=== PATIENT | female | born 1970 | race Caucasian/White ===

== ENCOUNTER 2016-06-03 20:45 | Emergency (ER) | payer OTHER ==
[~2016-06-03] VITALS: Ht 160 cm; Wt 90.0 kg
[~2016-06-03 20:45] MED LIST: HYDR-906 PO; IBUP400T22 PO; KENC25 TOP; MED4DP PO
[2016-06-03 20:55] VITALS: Ht 160 cm; Wt 90.0 kg
[2016-06-03] MEDS ORDERED: ALBUTEROL 0.5% (NEB) 2.5 MG/0.5 ML AMP HHN STA (21:43)
[2016-06-03] MEDS ORDERED: PRED20TA PO (21:49)
[2016-06-03] MEDS ORDERED: ALBU18HF INHALATION (21:49)
[2016-06-03] MEDS ORDERED: AMO500 PO (21:49)
[2016-06-03] MEDS ORDERED: IBUP-1542 PO (21:49)
--- NOTE | 2016-06-03 21:50 | ERD ---
ER Documentation Chief Complaint Date/Time DATE: 06/03/16 TIME: 21:49 Chief Complaint cough/runny nose/body aches x 3 days HPI This 45 female presents with cough, body aches and congestion. She has chest pain, vomiting, abdominal pain. ROS All systems reviewed and are negative except as per history of present illness. Medications Home Meds Active Scripts Ibuprofen* (Motrin*) 600 Mg Tab, 600 MG PO Q6, #20 TAB Prov:ANASTASIA ROMERO MD 06/03/16 Amoxicillin* (Amoxicillin*) 500 Mg Cap, 500 MG PO TID for 10 Days, CAP Prov:ANASTASIA ROMERO MD 06/03/16 Albuterol Sulfate* (Ventolin HFA*) 18 Gm Hfa.aer.ad, 2 PUFF INHALATION Q4H, #1 INHALER Prov:ANASTASIA ROMERO MD 06/03/16 Prednisone* (Prednisone*) 20 Mg Tab, 40 MG PO DAILY for 4 Days, TAB Start June 04, 2016 Prov:ANASTASIA ROMERO MD 06/03/16 Hydrocodone/Acetaminophen ([place] 5-325 Tablet) 1 Each Tablet, 1 EACH PO BID, #6 TAB Prov:ARCENIO HAYWOOD PA-C 01/19/16 Methylprednisolone* (Medrol* DOSE PACK) 4 Mg/Dose-Pack Tab.ds.pk, 4 MG PO . DIRECTED, #1 PACKET Prov:ARCENIO HAYWOOD PA-C 01/19/16 Triamcinolone Acetonide* (Kenalog*) 0.25%-15GM Cr, 1 APPLIC TOP BID for 7 Days, EA Prov:BENNETT DOSS DO 09/29/15 Reported Medications Ibuprofen* (Ibuprofen*) 400 Mg Tablet, 400 MG PO TID 04/09/12 Allergies Allergies: Coded Allergies: azithromycin (Verified Allergy, Mild, HIVES, 06/03/16) PMhx/Soc History of Surgery: Yes (D7C, BACK SX GALLBLADDER) Anesthesia Reaction: No Hx Neurological Disorder: No Hx Respiratory Disorders: No Hx Cardiac Disorders: No Hx Psychiatric Problems: No Hx Miscellaneous Medical Probl: Yes (CERVICAL, LUMBAR DJD, OA) Hx Alcohol Use: No Hx Substance Use: No Hx Tobacco Use: No (quit 5 years ago) Physical Exam Vitals Vital Signs Date Time Temp Pulse Resp B/P Pulse Ox O2 Delivery O2 Flow Rate FiO2 06/03/16 20:55 99.1 108 20 129/72 98 Physical Exam Const: [] Alert, [id number] per Head: Atraumatic Eyes: Normal Conjunctiva ENT: Normal External Ears, Nose and Mouth. Left TM is red and bulging. Neck: Full range of motion..~ No meningismus. Resp: Clear to auscultation bilaterally. Mild wheezing without rales or retractions. Cardio: Regular rate and rhythm, no murmurs Abd: Soft, non tender, non distended. Normal bowel sounds Skin: No petechiae or rashes Back: No midline or flank tenderness Ext: No cyanosis, or edema Neur: Awake and alert Psych: Normal Mood and Affect Results 24 hrs Current Medications Medications (Trade) Dose Ordered Sig/Gunnar Route PRN Reason Start Time Stop Time Status Last Admin Dose Admin Prednisone (Prednisone) 40 mg ONCE ONCE PO 06/03/16 22:00 06/03/16 22:01 Albuterol (Proventil 0.5% (Neb)) 2.5 mg ONCE STAT HHN 06/03/16 21:43 06/03/16 21:45 DC Procedures/MDM Patient was given albuterol treatment and prednisone 40 mg by mouth. Patient signs and symptoms of otitis media and bronchitis with wheezing without evidence of hypoxemia or respiratory distress.. She will be treated with amoxicillin, short course of prednisone Ventolin and ibuprofen. The patient was stable with no new complaints during the ER course. Clinically, there is no current evidence to suggest meningitis, sepsis, acute abdomen, pneumonia, acute coronary syndrome, pulmonary embolism, or any other emergent condition appearing to require further evaluation or hospitalization. The patient should certainly return for any new or worsening symptoms per the aftercare instructions. They should otherwise follow-up with her primary care doctor for reevaluation this week. Departure Diagnosis: Primary Impression: Otitis media Otitis media type: suppurative Laterality: left Chronicity: acute Recurrence: not specified as recurrent Spontaneous tympanic membrane rupture: without spontaneous rupture Qualified Code: H66.002 - Acute suppurative otitis media of left ear without spontaneous rupture of tympanic membrane, recurrence not specified Additional Impression: URI, acute Condition: Stable Patient Instructions: Bronchitis With Wheezing (Adult), Otitis Media, Abx Tx ( Adult) Additional Instructions: Recheck for new or worsening symptoms or with primary care doctor. ANASTASIA ROMERO MD Jun 03, 2016 21:50
[2016-06-03] MEDS ORDERED: predniSONE 20 MG TAB PO ONE (22:00)
[2016-06-03 22:53] VITALS: BP 128/79; PULSE 95; RESP 20; TEMP 98.2
== END 2016-06-03 22:53 | disposition home or self-care (01) ==
LOC: FTE 20:45
DX: H66.002 Acute suppurative otitis media without spontaneous rupture of ear drum, left ear (principal); J06.9 Acute upper respiratory infection, unspecified; Z87.891 Personal history of nicotine dependence
CPT/HCPCS: 94664; J7512; Z7502; Z7610

== ENCOUNTER 2016-06-11 20:47 | Emergency (ER) | payer SELFPAY ==
[~2016-06-11] VITALS: Ht 162.6 cm; Wt 88.5 kg
[~2016-06-11 20:47] MED LIST changes: +ALBU18HF INHALATION; +AMO500 PO; +IBUP-1542 PO; +PRED20TA PO
[2016-06-11 21:17] VITALS: Ht 162.6 cm; Wt 88.5 kg
[2016-06-12] MEDS ORDERED: ADV25050 INHALATION (14:20)
[2016-06-12] MEDS ORDERED: DOXY100T20 PO (14:20)
[2016-06-12] MEDS ORDERED: IPRA4AER INHALATION (14:20)
[2016-06-12] MEDS ORDERED: BENZ100C70 PO (14:20)
== END 2016-06-12 00:48 | disposition left against medical advice (07) ==
LOC: FTE 20:47
DX: Z53.21 Procedure and treatment not carried out due to patient leaving prior to being seen by health care provider (principal)

== ENCOUNTER 2016-06-12 07:14 | Emergency (ER) | payer OTHER ==
[~2016-06-12] VITALS: Wt 88.0 kg
[2016-06-12] MEDS ORDERED: METHYLPREDNISOLONE 125 MG INJ IM STA (08:11)
[2016-06-12] MEDS ORDERED: LEVALBUTEROL (NEB) 1.25 MG/0.5 ML AMP INH STA (08:11)
[2016-06-12] MEDS ORDERED: IPRATROPIUM (NEB) 0.5 MG/2.5 ML AMP INH STA (08:11)
[2016-06-12] MEDS ORDERED: ONDANSETRON (ODT) 4 MG TAB ODT STA (08:43)
--- NOTE | 2016-06-12 08:44 | RADRPT ---
PROCEDURE: Chest Radiograph. CLINICAL INDICATION: Wheezing TECHNIQUE: Single frontal chest radiograph. COMPARISON: None available FINDINGS: The cardiomediastinal silhouette is within normal limits. There is bilateral perihilar interstitial infiltrates or edema. No lobar infiltrate is seen. There is no pleural effusion. The bones are intact. IMPRESSION: 1. Bilateral perihilar interstitial infiltrates or edema. RPTAT: KK .Favian Roach MD, MD Date Time Electronically viewed and signed by .Favian Roach MD, MD on 06/12/2016 08:44 .B/
[2016-06-12 11:02] LABS: ADD SCAN DIFF NO
[2016-06-12 11:06] LABS: BASOPHILS % 0.2 % (0.0-2.0); EOSINOPHILS % 0.1 % (0.0-7.0); HEMATOCRIT 38.3 % (37.0-47.0); HEMOGLOBIN 12.8 g/dl (12.0-16.0); LYMPHOCYTES # 0.7 10^3/ul (0.8-2.9); LYMPHOCYTES % 4.2 % (15.0-51.0); MEAN CORPUSCULAR HEMOGLOBIN 29.1 pg (29.0-33.0); MEAN CORPUSCULAR HGB CONC 33.4 g/dl (32.0-37.0); MEAN PLATELET VOLUME 11.4 fl (7.4-10.4); MONOCYTE # 0.5 10^3/ul (0.3-0.9); MONOCYTES % 3.3 % (0.0-11.0); NEUTROPHIL # 15.1 10^3/ul (1.6-7.5); NEUTROPHILS % 91.6 % (39.0-77.0); PLATELET COUNT 175 10^3/UL (140-415); RED CELL DISTRIBUTION WIDTH 12.6 % (11.5-14.5); WHITE BLOOD COUNT 16.5 10^3/ul (4.8-10.8)
[2016-06-12 11:18] LABS: ALBUMIN 3.6 g/dl (3.3-4.9); POTASSIUM 3.8 mmol/L (3.5-5.1)
[2016-06-12 11:20] LABS: BILIRUBIN,INDIRECT 0.2 mg/dl (0-1.1); BILIRUBIN,TOTAL 0.2 mg/dl (0.2-1.3); CREATININE 0.51 mg/dl (0.44-1.00); INR 0.91; PROTIME 12.2 Sec (12.2-14.2)
[2016-06-12 11:21] LABS: ALBUMIN/GLOBULIN RATIO 1.28; CALCIUM 9.1 mg/dl (8.4-10.2); TOTAL PROTEIN 6.4 g/dl (6.1-8.1)
[2016-06-12] MEDS ORDERED: IOHEXOL 100 ML ONE (11:53)
[2016-06-12] MEDS ORDERED: SOD CHLORIDE 0.9% 100 ML ONE (11:53)
[2016-06-12] MEDS ORDERED: IOHEXOL 350MG/ML 50 ML BTL ONE (11:53)
--- NOTE | 2016-06-12 12:31 | RADRPT ---
PROCEDURE: CTA Chest. CLINICAL INDICATION: Chest pain TECHNIQUE: The study was performed utilizing a multidetector CT scanner. Direct spiral 1 mm axial sections were obtained from the thoracic inlet to the upper abdomen with the use of 115 cc of Omnipa que 350 nonionic intravenous contrast material and reformatted at 3 mm. Coronal and sagittal reforma tions were obtained. The images were reviewed on a PACS workstation. DLP 611 mGycm CTDIvol 19.7 and 16.0 mGy COMPARISON: No prior studies are available for comparison. FINDINGS: Motion limits the distal subsegmental pulmonary arteries bilaterally with no central filling defects seen. No evidence of aortic dissection. There are multifocal areas of bilateral peribronchial micronodular opacities seen throughout the jaycee gs are slightly basilar predominant. The largest nodules measure up to 9 mm in the right upper lobe on series 4, image 44 which is a ground-glass appearance and up to 11 mm in the left upper lobe on image 42. Airways wall thickening is seen bilaterally. There are multiple lymph nodes which are mildly enlarged seen throughout the mediastinum and within the bilateral tyrone. The largest of these is seen in the left hilum measuring up to 1.9 x 1.4 cm on series 3, image 107. There is partial visualization of hepatosplenomegaly within the upper abdomen. There is no acute os seous abnormality. IMPRESSION: Limited study from motion demonstrates no central filling defects in the pulmonary arteries. The di stal subsegmental pulmonary arteries are obscured. Bilateral prominent peribronchial micronodular opacities are seen which is suggestive for an atypica l infectious or inflammatory process and there is also mediastinal and hilar adenopathy which may be reactive in nature. An inflammatory process such as sarcoidosis may also be considered within the differential. Continued follow-up is recommended. No evidence of aortic dissection. Hepatosplenomegaly of the upper abdomen is partially visualized. RPTAT: AVH .Anna Duggan MD, MD Date Time Electronically viewed and signed by .Anna Duggan MD, MD on 06/12/2016 12:31 .Tami/
[2016-06-12] MEDS ORDERED: DOXY100T20 PO (14:20)
[2016-06-12] MEDS ORDERED: ADV25050 INHALATION (14:20)
[2016-06-12] MEDS ORDERED: BENZ100C70 PO (14:20)
[2016-06-12] MEDS ORDERED: IPRA4AER INHALATION (14:20)
[2016-06-12 14:35] VITALS: BP 132/60; PULSE 105; RESP 18; TEMP 97.5
--- NOTE | 2016-06-12 14:49 | ERD ---
ER Documentation Chief Complaint Date/Time DATE: 06/12/16 TIME: 14:39 Chief Complaint COUGH AND SOB FOR THE PAST FEW DAYS. CONGESTION NO ACCESS MUSCLE USE HPI 45-year-old female with no significant past medical history presents to the ED complaining of shortness of breath that occurred beginning of this month on May 29, 2016. States that her cough is productive. Reports that she was seen here June 03, 2016 and was diagnosed with otitis media. States that she had a prescription for amoxicillin, ibuprofen, Tylenol, prednisone. States that none of these medications worked for her symptoms. States that she is currently wheezing and is having a cough fit. Denies any fever, chills, abdominal pain, nausea, vomiting, diarrhea. Ports that she was a prior smoker and smoked for 31 years but quit 5 years ago. Denies any leg swelling. ROS All systems reviewed and are negative except as per history of present illness. Medications Home Meds Active Scripts Salmeterol Xinaf/Fluticasone* (Advair*) 250-50 Diskus Inhaler, 1 INH INHALATION BID, #1 INHALER Prov:SAMINA DAVIDSON PA-C 06/12/16 Benzonatate* (Tessalon Perle*) 100 Mg Capsule, 100 MG PO Q8H Y for COUGH, #20 CAP Prov:SAMINA DAVIDSON PA-C 06/12/16 Albuterol/Ipratropium* (Combivent Respimat*) 20-100 Mcg/Inh - 4 Gm Aer.w.adap, 1 PUFF INHALATION QID, #1 INHALER Prov:SAMINA DAVIDSON PA-C 06/12/16 Doxycycline Hyclate* (Doxycycline Hyclate*) 100 Mg Tablet.dr, 100 MG PO BID for 10 Days, TAB Prov:SAMINA DAVIDSON PA-C 06/12/16 Ibuprofen* (Motrin*) 600 Mg Tab, 600 MG PO Q6, #20 TAB Prov:ANASTASIA ROMERO MD 06/03/16 Amoxicillin* (Amoxicillin*) 500 Mg Cap, 500 MG PO TID for 10 Days, CAP Prov:ANASTASIA ROMERO MD 06/03/16 Albuterol Sulfate* (Ventolin HFA*) 18 Gm Hfa.aer.ad, 2 PUFF INHALATION Q4H, #1 INHALER Prov:ANASTASIA ROMERO MD 06/03/16 Prednisone* (Prednisone*) 20 Mg Tab, 40 MG PO DAILY for 4 Days, TAB Start June 04, 2016 Prov:ANASTASIA ROMERO MD 06/03/16 Hydrocodone/Acetaminophen ([place] 5-325 Tablet) 1 Each Tablet, 1 EACH PO BID, #6 TAB Prov:ARCENIO HAYWOOD PA-C 01/19/16 Methylprednisolone* (Medrol* DOSE PACK) 4 Mg/Dose-Pack Tab.ds.pk, 4 MG PO . DIRECTED, #1 PACKET Prov:ARCENIO HAYWOOD PA-C 01/19/16 Triamcinolone Acetonide* (Kenalog*) 0.25%-15GM Cr, 1 APPLIC TOP BID for 7 Days, EA Prov:BENNETT DOSS DO 09/29/15 Reported Medications Ibuprofen* (Ibuprofen*) 400 Mg Tablet, 400 MG PO TID 04/09/12 Allergies Allergies: Coded Allergies: azithromycin (Verified Allergy, Mild, HIVES, 06/03/16) PMhx/Soc History of Surgery: Yes (D&C, BACK SX, GALLBLADDER) Anesthesia Reaction: No Hx Neurological Disorder: No Hx Respiratory Disorders: No Hx Cardiac Disorders: No Hx Psychiatric Problems: No Hx Miscellaneous Medical Probl: Yes (CERVICAL, LUMBAR DJD, OA) Hx Alcohol Use: No Hx Substance Use: No Hx Tobacco Use: No (quit 5 years ago) Physical Exam Vitals Vital Signs Date Time Temp Pulse Resp B/P Pulse Ox O2 Delivery O2 Flow Rate FiO2 06/12/16 14:35 97.5 105 18 132/60 94 Room Air 06/12/16 09:50 98.5 113 20 117/70 92 Room Air 06/12/16 08:42 2.0 06/12/16 08:42 100 19 96 Nasal Cannula 2.0 06/12/16 08:02 99.4 24 99 Nasal Cannula 2.0 06/12/16 07:54 Nasal Cannula 2 06/12/16 07:15 98.0 112 24 129/87 96 Physical Exam Const: Lud-cfc-thkufrkze, well-nourished. In no acute distress. Head: Atraumatic, normocephalic Eyes: Normal Conjunctiva without injection. No purulent discharge. PERRL. EOMI ENT: Normal external ear. Ear canal without erythema. Tympanic membrane pearly de [place] without effusion or bulging. Nasal canal clear with normal turbinates. Moist oropharynx without tonsillar exudates. Non-erythematous pharynx. Uvula midline. No drooling. No trismus. Neck: Full range of motion. No meningismus. No cervical lymphadenopathy. Resp: Clear to auscultation bilaterally. No wheezing, rhonchi, rales, or crackles. No accessory muscle use. No retractions. Cardio: Regular rate and rhythm. No murmurs, rubs or gallops. Abd: Soft, non tender, non distended. Normal bowel sounds. No palpable masses. No rebound tenderness. No guarding. Skin: No petechiae or rashes Back: No midline tenderness. No CVA tenderness. Ext: No cyanosis, or edema. Neur: Awake and alert. Psych: Normal Mood and Affect Result Diagram: 06/12/16 1050 06/12/16 1050 Results 24 hrs Laboratory Tests Test 06/12/16 10:50 Activated Partial Thromboplast Time 29.0Sec Alanine Aminotransferase (ALT/SGPT) 23IU/L Albumin 3.6g/dl Albumin/Globulin Ratio 1.28 Alkaline Phosphatase 84IU/L Anion Gap 17 Aspartate Amino Transf (AST/SGOT) 33IU/L Basophils # 0.010^3/ul Basophils % 0.2% Blood Urea Nitrogen 6mg/dl Calcium Level 9.1mg/dl Carbon Dioxide Level 24mmol/L Chloride Level 103mmol/L Creatinine 0.51mg/dl Direct Bilirubin 0.00mg/dl Eosinophils # 0.010^3/ul Eosinophils % 0.1% Globulin 2.80g/dl Glucose Level 196mg/dl Hematocrit 38.3% Hemoglobin 12.8g/dl INR International Normalized Ratio 0.91 Indirect Bilirubin 0.2mg/dl Lymphocytes # 0.710^3/ul Lymphocytes % 4.2% Mean Corpuscular Hemoglobin 29.1pg Mean Corpuscular Hemoglobin Concent 33.4g/dl Mean Corpuscular Volume 87.0fl Mean Platelet Volume 11.4fl Monocytes # 0.510^3/ul Monocytes % 3.3% Neutrophils # 15.110^3/ul Neutrophils % 91.6% Nucleated Red Blood Cells # 0.010^3/ul Nucleated Red Blood Cells % 0.0/100WBC Platelet Count 90638^3/UL Potassium Level 3.8mmol/L Prothrombin Time 12.2Sec Prothrombin Time Ratio 1.0 Red Blood Count 4.4010^6/ul Red Cell Distribution Width 12.6% Sodium Level 140mmol/L Total Bilirubin 0.2mg/dl Total Protein 6.4g/dl Troponin I < 0.012ng/ml White Blood Count 16.510^3/ul Current Medications Medications (Trade) Dose Ordered Sig/Gunnar Route PRN Reason Start Time Stop Time Status Last Admin Dose Admin Levalbuterol (Xopenex Neb) 5 mg ONCE STAT INH 06/12/16 08:11 06/12/16 08:13 DC 06/12/16 08:41 Ipratropium [place] (Atrovent 0.02% (Neb)) 1 mg ONCE STAT INH 06/12/16 08:11 06/12/16 08:13 DC 06/12/16 08:41 Methylprednisolone Sodium Succinate (Solu-Medrol) 125 mg ONCE STAT IM 06/12/16 08:11 06/12/16 08:13 DC 06/12/16 08:42 Ondansetron HCl (Zofran Odt) 4 mg ONCE STAT ODT 06/12/16 08:43 06/12/16 08:44 DC 06/12/16 08:58 IV Flush 10 ml 10 ml STK-MED ONCE .ROUTE 06/12/16 11:53 06/12/16 11:54 DC 06/12/16 12:23 Sodium Chloride 100 ml @ ud STK-MED ONCE .ROUTE 06/12/16 11:53 06/12/16 11:54 DC 06/12/16 12:23 Iohexol (Omnipaque) 100 ml @ ud STK-MED ONCE .ROUTE 06/12/16 11:53 06/12/16 11:54 DC 06/12/16 12:24 Iohexol (Omnipaque 350mg/ ml) 50 ml STK-MED ONCE .ROUTE 06/12/16 11:53 06/12/16 11:54 DC 06/12/16 12:24 Procedures/MDM This is a 45-year-old female with no significant past medical history presents the ED complaining of a productive cough, body aches, fever, slight chest pain when she coughs. Patient is afebrile. She is tachycardic at 112. A chest x- ray, breathing treatment consisting of 5 mg Xopenex, 1 mg Atrovent, 125 mg Solu- Medrol was ordered to treat patient with slight improvement. PROCEDURE: Chest Radiograph. CLINICAL INDICATION: Wheezing TECHNIQUE: Single frontal chest radiograph. COMPARISON: None available FINDINGS: The cardiomediastinal silhouette is within normal limits. There is bilateral perihilar interstitial infiltrates or edema. No lobar infiltrate is seen. There is no pleural effusion. The bones are intact. IMPRESSION: 1. Bilateral perihilar interstitial infiltrates or edema. Patient now was noted to have a oxygen saturation between 90-92 and was still tachycardic. At this time patient does not Perc out. Chest x-ray showed bilateral perihilar interstitial infiltrates or edema. This case was discussed with my supervising physician, Dr. Ortiz. We both agreed to proceed with ordering a CT a angiogram, obtain a CBC, CMP, lipase, troponin, urine for further evaluation. PROCEDURE: CTA Chest. CLINICAL INDICATION: Chest pain TECHNIQUE: The study was performed utilizing a multidetector CT scanner. Direct spiral 1 mm axial sections were obtained from the thoracic inlet to the upper abdomen with the use of 115 cc of Omnipaque 350 nonionic intravenous contrast material and reformatted at 3 mm. Coronal and sagittal reformations were obtained. The images were reviewed on a PACS workstation. DLP 611 mGycm CTDIvol 19.7 and 16.0 mGy COMPARISON: No prior studies are available for comparison. FINDINGS: Motion limits the distal subsegmental pulmonary arteries bilaterally with no central filling defects seen. No evidence of aortic dissection. There are multifocal areas of bilateral peribronchial micronodular opacities seen throughout the lungs are slightly basilar predominant. The largest nodules measure up to 9 mm in the right upper lobe on series 4, image 44 which is a ground-glass appearance and up to 11 mm in the left upper lobe on image 42. Airways wall thickening is seen bilaterally. There are multiple lymph nodes which are mildly enlarged seen throughout the mediastinum and within the bilateral tyrone. The largest of these is seen in the left hilum measuring up to 1.9 x 1.4 cm on series 3, image 107. There is partial visualization of hepatosplenomegaly within the upper abdomen. There is no acute osseous abnormality. IMPRESSION: Limited study from motion demonstrates no central filling defects in the pulmonary arteries. The distal subsegmental pulmonary arteries are obscured. Bilateral prominent peribronchial micronodular opacities are seen which is suggestive for an atypical infectious or inflammatory process and there is also mediastinal and hilar adenopathy which may be reactive in nature. An inflammatory process such as sarcoidosis may also be considered within the differential. Continued follow-up is recommended. No evidence of aortic dissection. Hepatosplenomegaly of the upper abdomen is partially visualized. EKG reviewed and interpreted by Dr. Richmond Rate/Rhythm: [111 bpm, Normal Sinus Rhythm] No ectopy, no ST elevations, normal axis. QRS, ST, T-waves: [No changes consistent w/ acute ischemia] Impression: [No evidence of ischemia or arrhythmia] Low suspicion for acute myocardial infarction, pneumothorax, pneumonia, cardiac tamponade, pulmonary embolism, AAA, aortic dissection, Boerhaave's syndrome, cardiac dysrhythmias,meningitis, intracranial bleed, seizure, stroke, TIA or other emergent conditions. CTA possibly showed an atypical pneumonia patient is afebrile and has normal vital signs. Patient's physical exam include lungs which were clear to auscultation and a normal pulse oximetry. There is a low suspicion for pneumothorax, pulmonary embolism, epiglottitis, otitis media, otitis externa, viral/strep pharyngitis, sinusitis, peritonsillar abscess, mastoiditis, retropharyngeal abscess, meningitis, sepsis, acute abdomen or other emergent conditions. Fluids, rest, and symptomatic treatment are recommended for the management of patient's symptoms. Discharge medications: Combivent, Salmeterol, Tessalon Perles, Doxycycline Patient was instructed to return to the ED for any new or worsening symptoms. They should otherwise follow up with the primary care provider within 1-2 days. The patient's questions were answered at the time of discharge. Patient understood and agreed with discharge management. Departure Diagnosis: Primary Impression: Cough Additional Impression: Shortness of breath Condition: Stable Patient Instructions: Coping with Shortness of Breath: Controlling Stress, Pneumonia (Adult) Additional Instructions: FOLLOW UP WITH YOUR PRIMARY CARE PHYSICIAN in 2-3 days to repeat chest xray at 2 weeks. If symptoms do not improve, get a referral to [facility] for further testing and evaluation for possible sarcoidosis.Return to this facility if you are not improving as expected. SAMINA DAVIDSON PA-C Jun 12, 2016 14:48
== END 2016-06-12 14:39 | disposition home or self-care (01) ==
LOC: FTE 07:14
DX: R05 Cough (principal); R06.02 Shortness of breath
CPT/HCPCS: 36415; 71010; 71275; 80053; 84484; 85025; 85610; 85730; 94644; 96372; J2930; Q9967; Z7502; Z7610; 93005

== ENCOUNTER 2016-09-01 01:27 | Emergency (ER) | payer OTHER ==
[~2016-09-01] VITALS: Ht 160 cm; Wt 90.0 kg
[~2016-09-01 01:27] MED LIST changes: +ADV25050 INHALATION; +BENZ100C70 PO; +DOXY100T20 PO; +IPRA4AER INHALATION
[2016-09-01 01:57] VITALS: Ht 160 cm; Wt 90.0 kg
[2016-09-01] MEDS ORDERED: CEPH-443 PO (02:43)
--- NOTE | 2016-09-01 02:43 | ERD ---
ER Documentation Chief Complaint Date/Time DATE: 09/01/16 TIME: 02:41 Chief Complaint RIGHT SIDED HEAD PAIN. DENIES N/V/NUMBNESS/TINGLING. MILD SORE THROAT HPI This 46-year-old female presents to the emergency room for evaluation of a headache, and sore throat. The patient states that she has pain on the right side of her head and states that she noticed a small bump in the back of her head which hurts when she presses it. The patient denies any fevers associated with this, numbness or tingling and came to the emergency room today for evaluation. ROS All systems reviewed and are negative except as per history of present illness. Medications Home Meds Active Scripts Salmeterol Xinaf/Fluticasone* (Advair*) 250-50 Diskus Inhaler, 1 INH INHALATION BID, #1 INHALER Prov:SAMINA DAVIDSON PA-C 06/12/16 Benzonatate* (Tessalon Perle*) 100 Mg Capsule, 100 MG PO Q8H Y for COUGH, #20 CAP Prov:SAMINA DAVIDSON PA-C 06/12/16 Albuterol/Ipratropium* (Combivent Respimat*) 20-100 Mcg/Inh - 4 Gm Aer.w.adap, 1 PUFF INHALATION QID, #1 INHALER Prov:SAMINA DAVIDSON PA-C 06/12/16 Doxycycline Hyclate* (Doxycycline Hyclate*) 100 Mg Tablet.dr, 100 MG PO BID for 10 Days, TAB Prov:SAMINA DAVIDSON PA-C 06/12/16 Ibuprofen* (Motrin*) 600 Mg Tab, 600 MG PO Q6, #20 TAB Prov:ANASTASIA ROMERO MD 06/03/16 Amoxicillin* (Amoxicillin*) 500 Mg Cap, 500 MG PO TID for 10 Days, CAP Prov:ANASTASIA ROMERO MD 06/03/16 Albuterol Sulfate* (Ventolin HFA*) 18 Gm Hfa.aer.ad, 2 PUFF INHALATION Q4H, #1 INHALER Prov:ANASTASIA ROMERO MD 06/03/16 Prednisone* (Prednisone*) 20 Mg Tab, 40 MG PO DAILY for 4 Days, TAB Start June 04, 2016 Prov:ANASTASIA ROMERO MD 06/03/16 Hydrocodone/Acetaminophen ([place] 5-325 Tablet) 1 Each Tablet, 1 EACH PO BID, #6 TAB Prov:ARCENIO HAYWOOD PA-C 01/19/16 Methylprednisolone* (Medrol* DOSE PACK) 4 Mg/Dose-Pack Tab.ds.pk, 4 MG PO . DIRECTED, #1 PACKET Prov:ARCENIO HAYWOOD PA-C 01/19/16 Triamcinolone Acetonide* (Kenalog*) 0.25%-15GM Cr, 1 APPLIC TOP BID for 7 Days, EA Prov:BENNETT DOSS DO 09/29/15 Reported Medications Ibuprofen* (Ibuprofen*) 400 Mg Tablet, 400 MG PO TID 04/09/12 Allergies Allergies: Coded Allergies: azithromycin (Verified Allergy, Mild, HIVES, 06/03/16) PMhx/Soc History of Surgery: Yes (D&C, BACK SX, GALLBLADDER) Anesthesia Reaction: No Hx Neurological Disorder: No Hx Respiratory Disorders: No Hx Cardiac Disorders: No Hx Psychiatric Problems: No Hx Miscellaneous Medical Probl: Yes (CERVICAL, LUMBAR DJD, OA) Hx Alcohol Use: No Hx Substance Use: No Hx Tobacco Use: No (quit 5 years ago) Physical Exam Vitals Vital Signs Date Time Temp Pulse Resp B/P Pulse Ox O2 Delivery O2 Flow Rate FiO2 09/01/16 01:57 97.9 86 18 129/85 95 Physical Exam Const: No acute distress Head: Small superficial amount of folliculitis noted on the posterior portion of scalp, no skin sloughing atraumatic Eyes: Normal Conjunctiva ENT: Normal External Ears, Nose and Mouth. Neck: Full range of motion..~ No meningismus. Resp: Clear to auscultation bilaterally Cardio: Regular rate and rhythm, no murmurs Abd: Soft, non tender, non distended. Normal bowel sounds Skin: No petechiae or rashes Back: No midline or flank tenderness Ext: No cyanosis, or edema Neur: Awake and alert Psych: Normal Mood and Affect Procedures/MDM This 46-year-old female presents to the emergency room for evaluation of pain in her head. When I evaluated this patient I did not small amount of folliculitis. This patient also is complaining of sore throat and her throat exam does not reveal any exudate or any erythema or edema. The patient will be discharged at this time with a prescription for Keflex for folliculitis. Departure Diagnosis: Primary Impression: Folliculitis Condition: Stable NEIL MORALES DO Sep 01, 2016 02:43
== END 2016-09-01 02:47 | disposition home or self-care (01) ==
LOC: E/R 01:27
DX: L73.9 Follicular disorder, unspecified (principal); Z87.891 Personal history of nicotine dependence
CPT/HCPCS: 99283

== ENCOUNTER 2017-03-09 10:15 | Emergency (ER) | payer OTHER ==
[~2017-03-09] VITALS: Ht 157.5 cm; Wt 88.0 kg
[~2017-03-09 10:15] MED LIST changes: -AMO500 PO; +AMOX500C2 PO; +CEPH-443 PO
[2017-03-09 10:18] VITALS: Ht 157.5 cm; Wt 88.0 kg
[2017-03-09] MEDS ORDERED: ALBUTEROL 0.083% (NEB) 2.5 MG/3 ML AMP HHN STA (10:49)
--- NOTE | 2017-03-09 11:22 | RADRPT ---
PROCEDURE: XR Chest. CLINICAL INDICATION: Cough TECHNIQUE: Single frontal chest x-ray. COMPARISON: 06/12/2016 FINDINGS: The lungs are clear. No focal opacification is seen. The cardiomediastinal silhouette is unremarka ble. The osseous structures are unremarkable. IMPRESSION: 1. There is no acute cardiopulmonary process. RPTAT: PP .Rodolfo Polanco MD, MD Date Time Electronically viewed and signed by .Rodolfo Polanco MD, on 03/09/2017 11:21 .B/
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
[2017-03-09] MEDS ORDERED: NAPR-688 PO (11:33)
== END 2017-03-09 12:03 | disposition home or self-care (01) ==
LOC: FTE 10:15
DX: T59.811A Toxic effect of smoke, accidental (unintentional), initial encounter (principal); Z87.891 Personal history of nicotine dependence
CPT/HCPCS: 71010; 94664; Z7502; Z7610

== ENCOUNTER 2017-10-10 14:35 | Emergency (ER) | END 2017-10-10 17:20 | disposition home or self-care (01) ==

== ENCOUNTER 2018-10-16 14:45 | Emergency (ER) | payer OTHER ==
[~2018-10-16] VITALS: Wt 89.0 kg
[~2018-10-16 14:45] MED LIST changes: +BENZ-6 PO; -BENZ100C70 PO; +HYDR-4011 PO; -HYDR-906 PO; +IBUP-1541 PO; -IBUP400T22 PO; +NAPR-688 PO
[2018-10-16 15:11] VITALS: BP 121/81; PULSE 98; RESP 18
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
== END 2018-10-16 16:31 | disposition home or self-care (01) ==
LOC: FTE 14:45
DX: M79.604 Pain in right leg (principal); Z87.891 Personal history of nicotine dependence
CPT/HCPCS: 99283